=== PATIENT | female | born 1985 ===

== ENCOUNTER 2024-08-19 11:53 | Outpatient (CLI) | payer OTHER | END 2024-08-19 11:54 | disposition home or self-care (01) | LOC: PRENATAL 11:53 | PROVIDERS: ATTEND Obstetrics & Gynecology Maternal & Fetal Medicine | DX: O44.00 Complete placenta previa NOS or without hemorrhage, unspecified trimester (principal); O28.3 Abnormal ultrasonic finding on antenatal screening of mother; O09.529 Supervision of elderly multigravida, unspecified trimester; O34.219 Maternal care for unspecified type scar from previous cesarean delivery; O34.40 Maternal care for other abnormalities of cervix, unspecified trimester; Z3A.21 21 weeks gestation of pregnancy ==